=== PATIENT | female | born 1990 | race Caucasian/White ===

== ENCOUNTER 2016-09-29 10:41 | Emergency (ER) | payer SELFPAY ==
[~2016-09-29] VITALS: Ht 165.1 cm; Wt 58.0 kg
[2016-09-29] MEDS ORDERED: IBUPROFEN 600MG TABLET PO ONE (12:00)
[2016-09-29 12:54] VITALS: BP 127/77
== END 2016-09-29 13:39 | disposition home or self-care (01) ==
LOC: ER 10:51
DX: M25.512 Pain in left shoulder (principal); V89.2XXA Person injured in unspecified motor-vehicle accident, traffic, initial encounter; Y93.89 Activity, other specified; Y99.8 Other external cause status; Y92.89 Other specified places as the place of occurrence of the external cause
CPT/HCPCS: 71020; 73000; 73030; 81025; 99284